=== PATIENT | male | born 1965 | race African-American/Black ===

== ENCOUNTER 2022-09-17 04:38 | Inpatient (IN) | payer MEDICARE, MEDICAID ==
[2022-09-17] MEDS ORDERED: Ondansetron PF 4 MG/2 ML Vial ONE ×2 (05:05→07:18)
[2022-09-17 05:12] LABS: #Eosinphils 0.2 thou/uL (0.0-0.7); #Lymphocytes 1.6 thou/uL (1.20-3.40); #Monocytes 0.3 thou/uL (0.11-0.59); #Neutrophils 8.9 thou/uL (1.40-6.50); %Basophils 0.4 % (0.0-1.0); %Eosinophils 1.5 % (0.0-10.0); %Lymphocytes 14.3 % (21.0-51.0); %Monocytes 2.8 % (0.0-10.0); %Neutrophils 81.1 % (42.0-75.0); Hemoglobin 11.8 g/dL (14.0-18.0); Mean Corpuscular HGB CONC 32.6 g/dL (32.0-36.0); Mean Corpuscular Hemoglobin 32.6 pg (27.0-31.0); Platelet Count 218 10x3/uL (130-400); RBC Distribution Width 13.8 % (11.5-14.5); Red Blood Cell (RBC) Count 3.61 mill/uL (4.70-6.10)
[2022-09-17 05:41] LABS: ALT (SGPT) 13 U/L (8-55); AST (SGOT) 29 U/L (5-34); Albumin 4.1 g/dL (3.5-5.0); Alkaline Phosphatase 92 U/L (40-110); Anion Gap 21 mmol/L (10-20); BUN (Urea Nitrogen) 19 mg/dL (8.4-25.7); Bilirubin, Total 0.7 mg/dL (0.2-1.2); Calc. Creatinine Clearance 0 mL/min (70-130); Calcium 9.2 mg/dL (7.8-10.44); Carbon Dioxide 27 mmol/L (22-29); Chloride 98 mmol/L (98-107); Estimated GFR 9; Globulin 4.1 g/dL (2.4-3.5); Glucose 166 mg/dL (70-105); Lipase 8 U/L (8-78); Potassium 3.9 mmol/L (3.5-5.1); Protein, Total 8.2 g/dL (6.0-8.3); Sodium 142 mmol/L (136-145)
[2022-09-17] MEDS ORDERED: Promethazine HCl 12.5 MG in Sodium Chloride 0.9% 50 ML IVPB SCH ×4 (05:45→23:59)
[2022-09-17 05:54] LABS: CKMB 1.1 ng/mL (0-6.6)
[2022-09-17] MEDS ORDERED: Meclizine HCl 25 MG TAB ONE (06:55)
[2022-09-17] MEDS ORDERED: Diazepam 10 MG/2 ML SYRINGE ONE (07:18)
[2022-09-17] MEDS ORDERED: Acetaminophen 325 MG TAB PO PRN (09:58)
[2022-09-17] MEDS ORDERED: Promethazine HCl 25 MG in Sodium Chloride 0.9% 50 ML IVPB PRN (10:04)
[2022-09-17 10:18] LABS: CKMB 1.6 ng/mL (0-6.6)
[2022-09-17] MEDS ORDERED: Pantoprazole 40 MG VIAL IVP SCH (10:30)
[2022-09-17] MEDS ORDERED: Sodium Chloride 0.9% 1,000 ML IV SCH (10:30)
[2022-09-17] MEDS ORDERED: Pantoprazole 40 MG VIAL ONE (10:47)
[2022-09-17 12:21] LABS: Magnesium 2.1 mg/dL (1.6-2.6)
[2022-09-17] MEDS ORDERED: Prochlorperazine Edisylate 10 MG in Sodium Chloride 0.9% 50 ML IVPB PRN (14:43)
[2022-09-17 15:39] LABS: HBSAg Index 0.27 S/CO (0-0.99); Hep B Core Total Ab Non-Reactive (NonReactive); Hep B Core Total Index 0.09 S/CO (0-0.79); Hep B Surf Ag Non-Reactive S/CO (NonReactive); Hep C IgG Ab Non-Reactive S/CO (NonReactive); Hep C Index 0.14 S/CO (0-0.79)
[2022-09-17] MEDS ORDERED: Metoprolol Tartrate 5 MG/5 ML VIAL IVP SCH (15:45)
[2022-09-17] MEDS: hydrALAZINE 20 MG/ML VIAL SLOW IVP PRN (15:56)
[2022-09-17 16:36] LABS: HBSAB Concentration 25.81 mIU/mL; Hep B Surf AB Reactive (NonReactive)
[2022-09-17] MEDS: hydrALAZINE 20 MG/ML VIAL SLOW IVP SCH ×2 (16:41→20:58)
[2022-09-17 19:17] VITALS: BMI 31.1
[2022-09-17] MEDS: Ondansetron PF 4 MG/2 ML Vial IVP PRN (20:59)
[2022-09-17] MEDS: Pantoprazole 40 MG VIAL IVP SCH (21:00)
[2022-09-17] MEDS: Promethazine HCl 12.5 MG in Sodium Chloride 0.9% 50 ML IVPB SCH (23:51)
[2022-09-18] MEDS: hydrALAZINE 20 MG/ML VIAL SLOW IVP SCH ×4 (04:01→22:40)
[2022-09-18] MEDS: Ondansetron PF 4 MG/2 ML Vial IVP PRN ×3 (04:02→20:18)
[2022-09-18] MEDS: Promethazine HCl 12.5 MG in Sodium Chloride 0.9% 50 ML IVPB SCH ×4 (05:40→22:40)
[2022-09-18] MEDS: Pantoprazole 40 MG VIAL IVP SCH ×2 (08:12→20:18)
[2022-09-18] MEDS ORDERED: Heparin 10,000 UNITS/ 10 ML VIAL ONE (09:24)
[2022-09-18] MEDS ORDERED: diphenhydrAMINE 25 MG in Sodium Chloride 0.9% 50 ML IVPB SCH (09:30)
[2022-09-18 16:34] LABS: #Basophils 0.1 thou/uL (0.0-0.2); #Eosinphils 0.2 thou/uL (0.0-0.7); #Lymphocytes 1.3 thou/uL (1.20-3.40); #Monocytes 0.4 thou/uL (0.11-0.59); #Neutrophils 3.7 thou/uL (1.40-6.50); %Basophils 0.9 % (0.0-1.0); %Eosinophils 3.8 % (0.0-10.0); %Lymphocytes 22.7 % (21.0-51.0); %Monocytes 7.7 % (0.0-10.0); %Neutrophils 64.8 % (42.0-75.0); Mean Corpuscular HGB CONC 32.9 g/dL (32.0-36.0); Mean Corpuscular Hemoglobin 32.7 pg (27.0-31.0); Mean Corpuscular Volume 99.6 fl (78.0-98.0); Mean Platelet Volume 8.2 fL (7.4-10.4); Platelet Count 221 10x3/uL (130-400); RBC Distribution Width 13.4 % (11.5-14.5); Red Blood Cell (RBC) Count 3.35 mill/uL (4.70-6.10); White Blood Cell (WBC) Count 5.7 10x3/uL (4.8-10.8)
[2022-09-18 16:44] LABS: Anion Gap 13 mmol/L (10-20); BUN (Urea Nitrogen) 11 mg/dL (8.4-25.7); Calc. Creatinine Clearance 25 mL/min (70-130); Calcium 8.4 mg/dL (7.8-10.44); Carbon Dioxide 28 mmol/L (22-29); Chloride 101 mmol/L (98-107); Estimated GFR 13; Glucose 75 mg/dL (70-105); Potassium 3.8 mmol/L (3.5-5.1); Sodium 138 mmol/L (136-145)
[2022-09-18] MEDS: hydrALAZINE 20 MG/ML VIAL SLOW IVP PRN (20:17)
[2022-09-19] MEDS: hydrALAZINE 20 MG/ML VIAL SLOW IVP SCH ×4 (04:53→21:16)
[2022-09-19] MEDS: Promethazine HCl 12.5 MG in Sodium Chloride 0.9% 50 ML IVPB SCH ×3 (05:34→18:13)
[2022-09-19] MEDS: Lisinopril 20 MG TAB PO SCH ×2 (09:44→19:56)
[2022-09-19] MEDS: Pantoprazole 40 MG VIAL IVP SCH ×2 (09:45→21:16)
[2022-09-19] MEDS ORDERED: Darunavir/Cobicistat [Prezcobix 800 Mg-150 Mg Tablet] PO SCH (10:30)
[2022-09-19] MEDS ORDERED: Lorazepam 2 MG/ML VIAL SLOW IVP SCH (15:00)
[2022-09-19] MEDS ORDERED: Melatonin 3 MG TAB PO PRN (20:04)
[2022-09-20] MEDS: Promethazine HCl 12.5 MG in Sodium Chloride 0.9% 50 ML IVPB SCH ×3 (00:16→23:25)
[2022-09-20] MEDS: hydrALAZINE 20 MG/ML VIAL SLOW IVP SCH ×4 (04:47→17:14)
[2022-09-20] MEDS: Lisinopril 20 MG TAB PO SCH ×2 (08:48→20:27)
[2022-09-20] MEDS: Pantoprazole 40 MG VIAL IVP SCH (08:48)
[2022-09-20] MEDS: Darunavir/Cobicistat [Prezcobix 800 Mg-150 Mg Tablet] PO SCH (08:50)
[2022-09-20] MEDS: Meclizine HCl 25 MG TAB PO PRN ×2 (11:09→21:31)
[2022-09-20] MEDS: hydrALAZINE 20 MG/ML VIAL SLOW IVP PRN ×2 (16:48→23:46)
[2022-09-20] MEDS: hydrALAZINE 25 MG TAB PO SCH (17:33)
[2022-09-21] MEDS: Promethazine HCl 12.5 MG in Sodium Chloride 0.9% 50 ML IVPB SCH ×2 (05:26→13:05)
[2022-09-21] MEDS: Lisinopril 20 MG TAB PO SCH (08:02)
[2022-09-21] MEDS: hydrALAZINE 25 MG TAB PO SCH ×2 (08:02→15:12)
[2022-09-21] MEDS: Darunavir/Cobicistat [Prezcobix 800 Mg-150 Mg Tablet] PO SCH (08:03)
[2022-09-21] MEDS ORDERED: Heparin 10,000 UNITS/ 10 ML VIAL ONE (08:38)
[2022-09-21 08:57] VITALS: TEMP 98.2
[2022-09-21] MEDS ORDERED: NIFEdipine XL 30 MG TAB PO SCH (09:00)
[2022-09-21] MEDS ORDERED: Diphenoxylate HCl/Atropine Tablet PO PRN (09:19)
[2022-09-21 15:12] VITALS: BP 185/95
== END 2022-09-21 16:08 | disposition home or self-care (01) | DRG 391 ==
LOC: ERS 04:38 → ERHOLD 10:05 → T4-B 14:24 → OBSVTOIN 09-18 20:28
PROVIDERS: ADMIT Internal Medicine; ATTEND Internal Medicine
PROC: 5A1D70Z Performance of Urinary Filtration, Intermittent, Less than 6 Hours Per Day (ICD-10-PCS; principal; 2022-09-17)
DX: A08.4 Viral intestinal infection, unspecified (principal); N18.6 End stage renal disease; I12.0 Hypertensive chronic kidney disease with stage 5 chronic kidney disease or end stage renal disease; A05.9 Bacterial foodborne intoxication, unspecified; E78.5 Hyperlipidemia, unspecified; D63.1 Anemia in chronic kidney disease; Z99.2 Dependence on renal dialysis; Z89.412 Acquired absence of left great toe; Z89.411 Acquired absence of right great toe; Z79.899 Other long term (current) drug therapy
CPT/HCPCS: 36415; 74176; 80048; 80053; 82553; 83690; 83735; 84484; 85025; 86704; 93005; 96365; 96375; 96376; C9113; J0360; J0780; J1200; J1644; J2060; J2405; J2550; J3360; J7050

== ENCOUNTER 2022-11-01 16:50 | Inpatient (IN) | payer MEDICARE, MEDICAID ==
[2022-11-01 17:49] LABS: #Basophils 0.1 thou/uL (0.0-0.2); #Eosinphils 0.5 thou/uL (0.0-0.7); #Monocytes 0.5 thou/uL (0.11-0.59); #Neutrophils 5.7 thou/uL (1.40-6.50); %Basophils 0.9 % (0.0-1.0); %Eosinophils 6.7 % (0.0-10.0); %Lymphocytes 14.2 % (21.0-51.0); %Monocytes 6.5 % (0.0-10.0); %Neutrophils 71.6 % (42.0-75.0); Hemoglobin 9.9 g/dL (14.0-18.0); Mean Corpuscular HGB CONC 31.8 g/dL (32.0-36.0); Mean Corpuscular Hemoglobin 30.1 pg (27.0-31.0); Mean Corpuscular Volume 94.5 fl (78.0-98.0); Mean Platelet Volume 10.5 fL (7.4-10.4); Platelet Count 220 10x3/uL (130-400); RBC Distribution Width 15.2 % (11.5-14.5); Red Blood Cell (RBC) Count 3.29 mill/uL (4.70-6.10)
[2022-11-01 18:10] LABS: ALT (SGPT) 11 U/L (8-55); AST (SGOT) 13 U/L (5-34); Albumin 3.2 g/dL (3.5-5.0); Alkaline Phosphatase 75 U/L (40-110); Anion Gap 13 mmol/L (10-20); BUN (Urea Nitrogen) 34 mg/dL (8.4-25.7); Bilirubin, Total 0.6 mg/dL (0.2-1.2); Calc. Creatinine Clearance 0 mL/min (70-130); Calcium 8.8 mg/dL (7.8-10.44); Carbon Dioxide 30 mmol/L (22-29); Chloride 103 mmol/L (98-107); Estimated GFR 6; Globulin 3.2 g/dL (2.4-3.5); Glucose 100 mg/dL (70-105); Protein, Total 6.4 g/dL (6.0-8.3); Sodium 142 mmol/L (136-145)
[2022-11-01 20:44] LABS: CKMB 1.6 ng/mL (0-6.6)
[2022-11-01] MEDS ORDERED: Aspirin Chewable 81 MG TAB ONE (22:02)
[2022-11-01] MEDS ORDERED: Dicyclomine 20 MG TAB ONE (22:03)
[2022-11-01] MEDS ORDERED: Ondansetron ODT 4 MG TAB PO PRN (22:06)
[2022-11-01] MEDS ORDERED: cloNIDine 0.1 MG TAB PO SCH (22:30)
[2022-11-02 05:05] LABS: #Basophils 0.1 thou/uL (0.0-0.2); #Eosinphils 0.6 thou/uL (0.0-0.7); #Monocytes 0.4 thou/uL (0.11-0.59); #Neutrophils 3.6 thou/uL (1.40-6.50); %Eosinophils 10.5 % (0.0-10.0); %Lymphocytes 19.7 % (21.0-51.0); %Monocytes 7.1 % (0.0-10.0); %Neutrophils 61.4 % (42.0-75.0); Mean Corpuscular HGB CONC 31.1 g/dL (32.0-36.0); Mean Corpuscular Volume 96.3 fl (78.0-98.0); Mean Platelet Volume 10.5 fL (7.4-10.4); Platelet Count 199 10x3/uL (130-400); RBC Distribution Width 15.2 % (11.5-14.5); White Blood Cell (WBC) Count 5.9 10x3/uL (4.8-10.8)
[2022-11-02 05:27] LABS: Anion Gap 12 mmol/L (10-20); BUN (Urea Nitrogen) 41 mg/dL (8.4-25.7); Calc. Creatinine Clearance 12 mL/min (70-130); Calcium 8.3 mg/dL (7.8-10.44); Carbon Dioxide 31 mmol/L (22-29); Chloride 104 mmol/L (98-107); Estimated GFR 6; Glucose 105 mg/dL (70-105); Potassium 3.9 mmol/L (3.5-5.1); Sodium 143 mmol/L (136-145)
[2022-11-02] MEDS ORDERED: Communication Order-Pharmacy FS SCH (08:30)
[2022-11-02] MEDS: Heparin 5,000 UNITS/ML VIAL SC SCH ×3 (08:39→23:28)
[2022-11-02] MEDS: cloNIDine 0.1 MG TAB PO SCH ×2 (08:42→23:27)
[2022-11-02] MEDS: hydrALAZINE 25 MG TAB PO SCH ×3 (08:42→23:26)
[2022-11-02] MEDS: Darunavir/Cobicistat [Prezcobix 800 Mg-150 Mg Tablet PO SCH (08:43)
[2022-11-02] MEDS ORDERED: Lisinopril 20 MG TAB PO SCH (09:00)
[2022-11-02] MEDS ORDERED: NIFEdipine XL 60 MG TAB PO SCH (09:00)
[2022-11-02] MEDS ORDERED: Heparin 10,000 UNITS/ 10 ML VIAL ONE (10:05)
[2022-11-02] MEDS: Sacubitril 49 MG/Valsartan 51 MG TABLET PO SCH (23:27)
[2022-11-03] MEDS: Melatonin 3 MG TAB PO PRN ×2 (01:00→22:24)
[2022-11-03] MEDS: hydrALAZINE 25 MG TAB PO SCH ×3 (05:46→22:23)
[2022-11-03] MEDS: Sacubitril 49 MG/Valsartan 51 MG TABLET PO SCH ×2 (05:46→22:23)
[2022-11-03] MEDS: cloNIDine 0.1 MG TAB PO SCH (05:47)
[2022-11-03] MEDS: Darunavir/Cobicistat [Prezcobix 800 Mg-150 Mg Tablet PO SCH (05:48)
[2022-11-03] MEDS: Heparin 5,000 UNITS/ML VIAL SC SCH ×3 (05:49→22:22)
[2022-11-03] MEDS ORDERED: Midazolam HCl 2 mg/2 ml Vial ONE (07:24)
[2022-11-03] MEDS ORDERED: Lidocaine 1% (PF) 30 ML VIAL ONE (07:24)
[2022-11-03 07:51] LABS: Troponin I 0.304 ng/mL (< 0.028)
[2022-11-03] MEDS ORDERED: Iopamidol 370 76% 100 ML VIAL ONE (08:52)
[2022-11-03] MEDS ORDERED: Sacubitril 49 MG/Valsartan 51 MG TABLET PO SCH (09:00)
[2022-11-03] MEDS: Carvedilol 6.25 MG TAB PO SCH ×2 (10:03→16:10)
[2022-11-03] MEDS ORDERED: Sodium Chloride 0.9% 200 ML IV PRN (13:51)
[2022-11-03] MEDS ORDERED: Acetaminophen/Codeine 30-300mg Tablet PO PRN ×2 (13:51)
[2022-11-03] MEDS ORDERED: Nitroglycerin 0.4 MG TAB (25 Tab Bottle) SL PRN (13:51)
[2022-11-04] MEDS ORDERED: Heparin 10,000 UNITS/ 10 ML VIAL ONE (08:39)
[2022-11-04] MEDS: Sacubitril 49 MG/Valsartan 51 MG TABLET PO SCH ×2 (09:00→20:38)
[2022-11-04] MEDS: hydrALAZINE 25 MG TAB PO SCH ×3 (09:00→20:37)
[2022-11-04] MEDS: Heparin 5,000 UNITS/ML VIAL SC SCH ×3 (09:00→20:38)
[2022-11-04] MEDS: Aspirin 325 mg Enteric Coated Tablet PO SCH (12:58)
[2022-11-04] MEDS: Carvedilol 6.25 MG TAB PO SCH ×2 (12:58→17:19)
[2022-11-04] MEDS: Darunavir/Cobicistat [Prezcobix 800 Mg-150 Mg Tablet PO SCH (13:03)
[2022-11-04] MEDS: Atorvastatin Calcium 40 MG TAB PO SCH (20:37)
[2022-11-04] MEDS: Melatonin 3 MG TAB PO PRN (20:38)
[2022-11-05] MEDS ORDERED: Melatonin 3 MG TAB PO SCH (02:15)
[2022-11-05 09:03] VITALS: BMI 27.6
[2022-11-05] MEDS: hydrALAZINE 25 MG TAB PO SCH ×3 (10:25→20:39)
[2022-11-05] MEDS: Heparin 5,000 UNITS/ML VIAL SC SCH ×3 (10:25→20:38)
[2022-11-05] MEDS: Carvedilol 6.25 MG TAB PO SCH ×2 (10:26→15:46)
[2022-11-05] MEDS: Aspirin 325 mg Enteric Coated Tablet PO SCH (10:26)
[2022-11-05] MEDS: Sacubitril 49 MG/Valsartan 51 MG TABLET PO SCH ×2 (10:26→20:39)
[2022-11-05] MEDS: Darunavir/Cobicistat [Prezcobix 800 Mg-150 Mg Tablet PO SCH (10:27)
[2022-11-05] MEDS: Melatonin 3 MG TAB PO PRN (20:39)
[2022-11-05] MEDS: Atorvastatin Calcium 40 MG TAB PO SCH (20:39)
[2022-11-06] MEDS ORDERED: Carvedilol 6.25 MG TAB PO SCH (07:24)
[2022-11-06] MEDS: Heparin 5,000 UNITS/ML VIAL SC SCH ×3 (11:41→20:11)
[2022-11-06] MEDS: hydrALAZINE 25 MG TAB PO SCH ×3 (11:41→20:10)
[2022-11-06] MEDS: Isosorbide Dinitrate 20 MG TAB PO SCH ×3 (11:41→20:10)
[2022-11-06] MEDS: Carvedilol 25 MG TAB PO SCH ×2 (13:14→15:56)
[2022-11-06] MEDS: Sacubitril 49 MG/Valsartan 51 MG TABLET PO SCH ×2 (13:50→20:11)
[2022-11-06] MEDS: Aspirin 325 mg Enteric Coated Tablet PO SCH (13:50)
[2022-11-06] MEDS: Darunavir/Cobicistat [Prezcobix 800 Mg-150 Mg Tablet PO SCH (13:50)
[2022-11-06] MEDS ORDERED: Heparin 10,000 UNITS/ 10 ML VIAL ONE (13:55)
[2022-11-06] MEDS: Melatonin 3 MG TAB PO PRN (20:11)
[2022-11-06] MEDS: Atorvastatin Calcium 40 MG TAB PO SCH (20:11)
[2022-11-07] MEDS: Aspirin 325 mg Enteric Coated Tablet PO SCH (07:28)
[2022-11-07] MEDS: Sacubitril 49 MG/Valsartan 51 MG TABLET PO SCH (07:28)
[2022-11-07] MEDS: Isosorbide Dinitrate 20 MG TAB PO SCH (07:28)
[2022-11-07] MEDS: hydrALAZINE 25 MG TAB PO SCH (07:28)
[2022-11-07] MEDS: Carvedilol 25 MG TAB PO SCH (07:28)
[2022-11-07] MEDS: Darunavir/Cobicistat [Prezcobix 800 Mg-150 Mg Tablet PO SCH (07:29)
[2022-11-07] MEDS: Heparin 5,000 UNITS/ML VIAL SC SCH (07:29)
[2022-11-07 08:43] VITALS: BP 144/67; TEMP 98.8
== END 2022-11-07 09:00 | disposition short-term general hospital (02) | DRG 280 ==
LOC: SUATTDRO 16:50 → ERS 16:50 → 2SW 22:11
PROVIDERS: ADMIT Family Medicine; ATTEND Internal Medicine
PROC: 4A023N7 Measurement of Cardiac Sampling and Pressure, Left Heart, Percutaneous Approach (ICD-10-PCS; principal; 2022-11-03)
PROC: B2111ZZ Fluoroscopy of Multiple Coronary Arteries using Low Osmolar Contrast (ICD-10-PCS; 2022-11-03)
DX: I21.4 Non-ST elevation (NSTEMI) myocardial infarction (principal); I50.21 Acute systolic (congestive) heart failure; N18.6 End stage renal disease; I13.2 Hypertensive heart and chronic kidney disease with heart failure and with stage 5 chronic kidney disease, or end stage renal disease; I31.39 Other pericardial effusion (noninflammatory); Z21 Asymptomatic human immunodeficiency virus [HIV] infection status; I25.10 Atherosclerotic heart disease of native coronary artery without angina pectoris; I25.5 Ischemic cardiomyopathy; Z99.2 Dependence on renal dialysis; Z79.899 Other long term (current) drug therapy; Z79.82 Long term (current) use of aspirin; Z86.73 Personal history of transient ischemic attack (TIA), and cerebral infarction without residual deficits; Z89.429 Acquired absence of other toe(s), unspecified side; D64.9 Anemia, unspecified; E78.5 Hyperlipidemia, unspecified
CPT/HCPCS: 36415; 36416; 70450; 71045; 80048; 80053; 82553; 83880; 84443; 84484; 85025; 90935; 93005; 93306; 93458; 93798; 96372; 99152; C1769; G0257; J1644; J1650; J2001; J2250; Q9967

== ENCOUNTER 2023-02-28 14:52 | Emergency (ER) | payer MEDICAID, MEDICARE ==
[2023-02-28 15:33] LABS: #Basophils 0.1 thou/uL (0.0-0.2); #Eosinphils 0.4 thou/uL (0.0-0.7); #Monocytes 0.5 thou/uL (0.11-0.59); #Neutrophils 4.3 thou/uL (1.40-6.50); %Basophils 0.9 % (0.0-1.0); %Eosinophils 6.6 % (0.0-10.0); %Lymphocytes 15.1 % (21.0-51.0); %Monocytes 8.5 % (0.0-10.0); %Neutrophils 68.4 % (42.0-75.0); Hematocrit 32.8 % (42.0-52.0); Hemoglobin 10.1 g/dL (14.0-18.0); Mean Corpuscular HGB CONC 30.8 g/dL (32.0-36.0); Mean Corpuscular Volume 94.3 fl (78.0-98.0); Mean Platelet Volume 9.6 fL (7.4-10.4); Platelet Count 246 10x3/uL (130-400); RBC Distribution Width 18.6 % (11.5-14.5); Red Blood Cell (RBC) Count 3.48 mill/uL (4.70-6.10); White Blood Cell (WBC) Count 6.3 10x3/uL (4.8-10.8)
[2023-02-28 15:55] LABS: Magnesium 2.5 mg/dL (1.6-2.6)
[2023-02-28 16:01] LABS: ALT (SGPT) 7 U/L (8-55); AST (SGOT) 13 U/L (5-34); Albumin 3.7 g/dL (3.5-5.0); Alkaline Phosphatase 89 U/L (40-110); Anion Gap 16 mmol/L (10-20); BUN (Urea Nitrogen) 40 mg/dL (8.4-25.7); Bilirubin, Total 0.3 mg/dL (0.2-1.2); Calc. Creatinine Clearance 0 mL/min (70-130); Carbon Dioxide 28 mmol/L (22-29); Chloride 99 mmol/L (98-107); Estimated GFR 7; Globulin 3.7 g/dL (2.4-3.5); Glucose 165 mg/dL (70-105); Potassium 3.7 mmol/L (3.5-5.1); Protein, Total 7.4 g/dL (6.0-8.3); Sodium 139 mmol/L (136-145)
[2023-02-28 16:06] LABS: Troponin I 0.105 ng/mL (< 0.028)
[2023-02-28 17:04] LABS: Acetaminophen Less than 10 mcg/mL (10.0-30.0); Alcohol Less than 10.0 mg/dL (Less than 10); Lipase 17 U/L (8-78); Salicylate Less than 8.0 mg/dL (15.0-30.0)
== END 2023-02-28 18:32 | disposition home or self-care (01) ==
LOC: ERS 14:52
DX: R53.1 Weakness (principal); I12.0 Hypertensive chronic kidney disease with stage 5 chronic kidney disease or end stage renal disease; N18.6 End stage renal disease; B20 Human immunodeficiency virus [HIV] disease; E78.00 Pure hypercholesterolemia, unspecified; I25.10 Atherosclerotic heart disease of native coronary artery without angina pectoris; Z99.2 Dependence on renal dialysis
CPT/HCPCS: 36415; 70450; 71045; 80053; 80307; 82140; 82550; 83690; 83735; 83880; 84443; 84484; 85025; 86140; 93005; 96360; 96361

== ENCOUNTER 2023-09-27 09:30 | Inpatient (IN) | payer MEDICARE, OTHER ==
[2023-09-27 10:01] LABS: #Basophils Less than 0.03 10x3/uL (0.0-0.2); %Basophils 0.3 % (0.0-1.0); %Eosinophils 3.9 % (0.0-10.0); %Monocytes 10.2 % (0.0-10.0); %Neutrophils 64.3 % (42.0-75.0); Hematocrit 35.2 % (42.0-52.0); Hemoglobin 11.3 g/dL (14.0-18.0); Mean Corpuscular HGB CONC 32.1 g/dL (32.0-36.0); Mean Corpuscular Volume 96.7 fL (78.0-98.0); Platelet Count 181 10x3/uL (130-400); RBC Distribution Width 14.5 % (11.5-14.5); Red Blood Cell (RBC) Count 3.64 mill/uL (4.70-6.10)
[2023-09-27 10:15] LABS: Globulin 6.5 g/dL (2.4-3.5); Prothrombin Time 13.4 sec (12.0-14.7)
[2023-09-27 10:16] LABS: PTT 28.2 sec (22.9-36.1)
[2023-09-27 10:19] LABS: ALT (SGPT) 9 U/L (8-55); AST (SGOT) 19 U/L (5-34); Albumin 2.8 g/dL (3.5-5.0); Alkaline Phosphatase 76 U/L (40-110); Anion Gap 25 mmol/L (10-20); BUN (Urea Nitrogen) 44 mg/dL (8.4-25.7); Bilirubin, Total 0.3 mg/dL (0.2-1.2); Calc. Creatinine Clearance 0 mL/min (70-130); Calcium 8.7 mg/dL (7.8-10.44); Carbon Dioxide 20 mmol/L (22-29); Chloride 96 mmol/L (98-107); Estimated GFR 5; Glucose 99 mg/dL (70-105); Protein, Total 9.3 g/dL (6.0-8.3); Sodium 137 mmol/L (136-145)
[2023-09-27 10:20] LABS: Acetaminophen Less than 10 mcg/mL (10.0-30.0); Alcohol Less than 10.0 mg/dL (Less than 10); Magnesium 2.4 mg/dL (1.6-2.6); Salicylate Less than 8.0 mg/dL (15.0-30.0)
[2023-09-27 10:25] LABS: Troponin I 0.091 ng/mL (< 0.028)
[2023-09-27 10:35] LABS: Analyzer IN Cardio ER; Base Excess 0.5 mEq/L (-2.0 to +3.0); Calcium, Ionized (venous) 0.97 mmol/L (1.16-1.32); Chloride (VBG) 95 mmol/L (98-106); Hematocrit-VBG 31 % (42.0-52.0); Hemoglobin (Hb) 10.7 g/dL (13.1-17.2); Potassium (VBG) 3.44 mmol/L (3.70-5.30); Sodium 135 mmol/L (133-146); pH (venous) 7.462 (7.32-7.43)
[2023-09-27] MEDS ORDERED: Sodium Chloride 0.9% 100 ML ONE (10:40)
[2023-09-27] MEDS ORDERED: Cefepime 2 GM VIAL ONE (10:40)
[2023-09-27] MEDS ORDERED: hydrALAZINE 20 MG/ML VIAL ONE (11:52)
[2023-09-27] MEDS ORDERED: Vancomycin (BATCH) 2 GM/500 ML BAG ONE (11:53)
[2023-09-27 12:04] LABS: Amphetamine Not Detected (NotDetected); Barbiturates Screen Not Detected (NotDetected); Benzodiazepine Screen Not Detected (NotDetected); Cocaine Metabolite Screen Detected (NotDetected); Methadone Not Detected (NotDetected); Methamphetamine Not Detected (NotDetected); Opiate Screen Not Detected (NotDetected); Oxycodone Screen Not Detected (NotDetected); Phencyclidine (PCP) Not Detected (NotDetected); THC/Cannabinoid Screen Not Detected (NotDetected); Tricyclic Screen Not Detected (NotDetected)
[2023-09-27 12:09] LABS: Clarity Very Cloudy (Clear); Glucose, Urine (Dipstick) Negative (Negative); Leukocyte Large (Negative); Nitrite Negative (Negative); Protein, Urine (Dipstick) > or equal to 300 mg/dL (Neg-Trace); pH, Urine 7.5 (5.0-9.0)
[2023-09-27 12:10] LABS: Bilirubin Negative (Negative); Ketone, Urine 15 mg/dL (Negative); Urobilinogen Normal mg/dL (Less than 2)
[2023-09-27 12:12] LABS: Bacteria/HPF 4+ HPF (None Seen); Blood, Urine Large (Negative); CAUTI Indications for Culture Alt mental st,lethar; RBC/HPF 21-50 HPF (0-3); Squamous Epithelial None Seen HPF (0-3); WBC/HPF Greater Than 50 HPF (0-3)
[2023-09-27 12:14] LABS: Urine Culture Reflex Yes Yes
[2023-09-27 13:20] LABS: Lactic Acid 0.7 mmol/L (0.5-2.2)
[2023-09-27] MEDS ORDERED: Iopamidol-370 76% 500 ML MDV (1 ML CHARGE) ONE (13:26)
[2023-09-27] MEDS ORDERED: LORazepam 2 MG/ML SYR.(CARPUJECT) ONE (14:26)
[2023-09-27] MEDS ORDERED: levETIRAcetam 500 MG (5 mL) VIAL ONE (14:30)
[2023-09-27] MEDS ORDERED: Acetaminophen 325 MG TAB PO PRN (14:37)
[2023-09-27] MEDS ORDERED: Lorazepam 2 MG/ML VIAL SLOW IVP PRN (14:37)
[2023-09-27] MEDS: hydrALAZINE 25 MG TAB PO SCH (16:59)
[2023-09-27] MEDS: Heparin 5,000 UNITS/ML VIAL SC SCH (17:01)
[2023-09-28] MEDS: Sulfameth/Trimethoprim DS 800-160mg TAB PO SCH
[2023-09-28] MEDS: Sulfameth/Trimethoprim SS 400-80MG TAB PO SCH (00:46)
[2023-09-28 08:20] LABS: Anion Gap 16 mmol/L (10-20); BUN (Urea Nitrogen) 20 mg/dL (8.4-25.7); Calc. Creatinine Clearance 15 mL/min (70-130); Calcium 8.4 mg/dL (7.8-10.44); Carbon Dioxide 25 mmol/L (22-29); Chloride 98 mmol/L (98-107); Estimated GFR 8; Glucose 59 mg/dL (70-105); Potassium 3.4 mmol/L (3.5-5.1); Sodium 136 mmol/L (136-145)
[2023-09-28] MEDS: NIFEdipine XL 60 MG ER.TAB PO SCH (08:42)
[2023-09-28] MEDS: Losartan 25 MG TAB PO SCH (08:42)
[2023-09-28 09:12] LABS: #Basophils 0.03 10x3/uL (0.0-0.2); %Basophils 0.5 % (0.0-1.0); %Eosinophils 4.2 % (0.0-10.0); %Lymphocytes 23.8 % (21.0-51.0); %Monocytes 10.2 % (0.0-10.0); Hematocrit 31.8 % (42.0-52.0); Mean Corpuscular HGB CONC 31.4 g/dL (32.0-36.0); Mean Corpuscular Hemoglobin 30.1 pg (27.0-31.0); Mean Corpuscular Volume 95.8 fL (78.0-98.0); Platelet Count 199 10x3/uL (130-400); RBC Distribution Width 14.5 % (11.5-14.5); Red Blood Cell (RBC) Count 3.32 mill/uL (4.70-6.10)
[2023-09-28] MEDS ORDERED: Sodium Bicarbonate 2.5 MEQ/5 ML SDV ONE (12:58)
[2023-09-28] MEDS ORDERED: Lidocaine 1% PF 5 ML VIAL ONE (12:58)
[2023-09-28] MEDS: levETIRAcetam 500 MG (5 mL) VIAL SLOW IVP SCH (16:09)
[2023-09-28] MEDS ORDERED: Vancomycin Diaylsis Sliding Scale (Wt 71-99) FS SCH (20:00)
[2023-09-28] MEDS: cefTRIAXone\\ROCEPHIN 1 GM in Sodium Chloride 0.9% 100 ML IVPB SCH (20:31)
[2023-09-28] MEDS ORDERED: Vancomycin 1 GM in Premix 1 BAG IVPB SCH (21:00)
[2023-09-29] MEDS: Labetalol HCl 100 MG/20 ML VIAL SLOW IVP SCH (03:11)
[2023-09-29 07:04] LABS: #Basophils 0.04 10x3/uL (0.0-0.2); %Basophils 0.6 % (0.0-1.0); %Eosinophils 3.8 % (0.0-10.0); %Lymphocytes 29.7 % (21.0-51.0); %Monocytes 9.6 % (0.0-10.0); Hematocrit 31.8 % (42.0-52.0); Hemoglobin 10.3 g/dL (14.0-18.0); Mean Corpuscular HGB CONC 32.4 g/dL (32.0-36.0); Mean Corpuscular Hemoglobin 31.4 pg (27.0-31.0); Mean Platelet Volume 9.5 fL (7.4-10.4); Platelet Count 186 10x3/uL (130-400); RBC Distribution Width 14.6 % (11.5-14.5); Red Blood Cell (RBC) Count 3.28 mill/uL (4.70-6.10)
[2023-09-29 07:37] LABS: Vancomycin, Trough 16.1 ug/mL
[2023-09-29 07:38] LABS: Anion Gap 14 mmol/L (10-20); BUN (Urea Nitrogen) 33 mg/dL (8.4-25.7); Calc. Creatinine Clearance 10 mL/min (70-130); Calcium 8.2 mg/dL (7.8-10.44); Carbon Dioxide 25 mmol/L (22-29); Chloride 100 mmol/L (98-107); Estimated GFR 6; Glucose 79 mg/dL (70-105); Potassium 3.4 mmol/L (3.5-5.1); Sodium 136 mmol/L (136-145)
[2023-09-29] MEDS ORDERED: Sulfameth/Trimethoprim DS 800-160mg TAB PO SCH (09:00)
[2023-09-29] MEDS ORDERED: Heparin 10,000 UNITS/ 10 ML VIAL ONE (13:02)
[2023-09-29] MEDS: Sulfameth/Trimethoprim SS 400-80MG TAB PO SCH (14:02)
[2023-09-29] MEDS ORDERED: Vancomycin HCl 750 MG in Sodium Chloride 0.9% 250 ML 250 ML IVPB SCH (17:00)
[2023-09-30 06:22] VITALS: BMI 26.7
[2023-09-30 07:41] LABS: #Basophils Less than 0.03 10x3/uL (0.0-0.2); %Basophils 0.3 % (0.0-1.0); %Eosinophils 4.1 % (0.0-10.0); %Lymphocytes 28.8 % (21.0-51.0); %Monocytes 9.8 % (0.0-10.0); %Neutrophils 56.8 % (42.0-75.0); Hematocrit 32.4 % (42.0-52.0); Hemoglobin 10.2 g/dL (14.0-18.0); Mean Corpuscular HGB CONC 31.5 g/dL (32.0-36.0); Mean Corpuscular Hemoglobin 30.4 pg (27.0-31.0); Mean Corpuscular Volume 96.7 fL (78.0-98.0); Mean Platelet Volume 9.8 fL (7.4-10.4); Platelet Count 202 10x3/uL (130-400); RBC Distribution Width 14.5 % (11.5-14.5); Red Blood Cell (RBC) Count 3.35 mill/uL (4.70-6.10)
[2023-09-30 08:10] LABS: Anion Gap 15 mmol/L (10-20); BUN (Urea Nitrogen) 22 mg/dL (8.4-25.7); Calc. Creatinine Clearance 15 mL/min (70-130); Calcium 8.2 mg/dL (7.8-10.44); Carbon Dioxide 32 mmol/L (22-29); Chloride 96 mmol/L (98-107); Estimated GFR 9; Glucose 85 mg/dL (70-105); Potassium 4.1 mmol/L (3.5-5.1); Sodium 139 mmol/L (136-145)
[2023-09-30] MEDS ORDERED: Sodium Bicarbonate 2.5 MEQ/5 ML SDV ONE ×2 (12:46→13:16)
[2023-09-30 14:30] VITALS: BP 154/83
[2023-09-30 14:41] LABS: CSF Source CSF; Clarity Clear (Clear); Tube # 4
[2023-09-30 14:49] LABS: CSF, Protein 64.8 mg/dL (15-40)
[2023-10-01] MEDS: cefTRIAXone\\ROCEPHIN 2 GM in Sodium Chloride 0.9% 100 ML IVPB SCH (00:49)
[2023-10-01 04:15] LABS: #Basophils 0.05 10x3/uL (0.0-0.2); %Basophils 0.8 % (0.0-1.0); %Eosinophils 4.1 % (0.0-10.0); %Lymphocytes 27.2 % (21.0-51.0); %Monocytes 8.6 % (0.0-10.0); %Neutrophils 58.8 % (42.0-75.0); Hematocrit 31.2 % (42.0-52.0); Mean Corpuscular HGB CONC 32.1 g/dL (32.0-36.0); Mean Corpuscular Hemoglobin 30.5 pg (27.0-31.0); Mean Corpuscular Volume 95.1 fL (78.0-98.0); Mean Platelet Volume 9.8 fL (7.4-10.4); Platelet Count 213 10x3/uL (130-400); RBC Distribution Width 14.6 % (11.5-14.5); Red Blood Cell (RBC) Count 3.28 mill/uL (4.70-6.10)
[2023-10-01 04:49] LABS: Anion Gap 16 mmol/L (10-20); BUN (Urea Nitrogen) 33 mg/dL (8.4-25.7); Calc. Creatinine Clearance 12 mL/min (70-130); Calcium 8.4 mg/dL (7.8-10.44); Carbon Dioxide 29 mmol/L (22-29); Chloride 97 mmol/L (98-107); Estimated GFR 7; Glucose 76 mg/dL (70-105); Sodium 138 mmol/L (136-145)
[2023-10-01 11:17] LABS: Fungitell Beta (1,3) D-Glucan Positive (.)
[2023-10-01 12:13] VITALS: TEMP 97.8
[2023-10-03 01:12] LABS: HSV 1 - DNA, CSF Negative (Negative); HSV 2 - DNA, CSF Negative (Negative)
[2023-10-04] MEDS ORDERED: Sulfameth/Trimethoprim SS 400-80MG TAB PO SCH (17:00)
== END 2023-10-01 17:11 | disposition home or self-care (01) | DRG 100 ==
LOC: ERS 09:30 → IMCU/EMU 16:06
PROVIDERS: ADMIT Family Medicine; ATTEND Internal Medicine
PROC: 4A00X4Z Measurement of Central Nervous Electrical Activity, External Approach (ICD-10-PCS; principal; 2023-09-28)
PROC: 009U3ZX Drainage of Spinal Canal, Percutaneous Approach, Diagnostic (ICD-10-PCS; 2023-09-30)
PROC: B01B1ZZ Fluoroscopy of Spinal Cord using Low Osmolar Contrast (ICD-10-PCS; 2023-09-30)
DX: R56.9 Unspecified convulsions (principal); N18.6 End stage renal disease; B20 Human immunodeficiency virus [HIV] disease; E87.20 Acidosis, unspecified; I12.0 Hypertensive chronic kidney disease with stage 5 chronic kidney disease or end stage renal disease; D63.1 Anemia in chronic kidney disease; I25.10 Atherosclerotic heart disease of native coronary artery without angina pectoris; E88.09 Other disorders of plasma-protein metabolism, not elsewhere classified; E87.6 Hypokalemia; R94.31 Abnormal electrocardiogram [ECG] [EKG]; Z89.412 Acquired absence of left great toe; Z99.2 Dependence on renal dialysis; Z95.1 Presence of aortocoronary bypass graft; Z89.411 Acquired absence of right great toe; Z88.2 Allergy status to sulfonamides; Z79.899 Other long term (current) drug therapy
CPT/HCPCS: 36415; 51701; 62270; 70450; 70496; 70498; 70551; 71045; 72100; 80048; 80053; 80202; 80306; 80307; 81001; 82805; 82945; 83605; 83735; 84157; 84443; 84484; 85025; 85610; 85730; 86141; 86592; 86635; 86788; 86789; 87040; 87070; 87077; 87086; 87149; 87186; 87205; 87449; 87529; 87798; 87899; 89051; 93005; 94760; 95700; 95712; 95819; 96361; 96365; 96374; 96375; J0360; J0692; J0696; J1644; J1953; J2060; J3370; J3490; Q9967

== ENCOUNTER 2024-05-22 14:56 | Emergency (ER) | payer OTHER, MEDICARE ==
[2024-05-22] MEDS ORDERED: Amoxicillin/Potassium Clav 875 MG TAB ONE (16:19)
[2024-05-22] MEDS ORDERED: Acetaminophen 500 MG TAB ONE (16:19)
== END 2024-05-22 16:32 | disposition home or self-care (01) ==
LOC: ERS 14:56
DX: Z53.21 Procedure and treatment not carried out due to patient leaving prior to being seen by health care provider (principal)
CPT/HCPCS: 87081; 87428; 87430; 99283

== ENCOUNTER 2025-05-16 18:12 | Emergency (ER) | payer OTHER ==
[~2025-05-16 18:12] MED LIST: Iopamidol-370 76% 500 ML MDV (1 ML CHARGE) ONE
[2025-05-16] MEDS ORDERED: Nitroglycerin 2% Ointment 1 INCH/1 GM Packet ONE (18:28)
[2025-05-16 19:02] LABS: #Basophils Less than 0.03 10x3/uL (0.0-0.2); #Eosinophils 0.28 10x3/uL (0.0-0.7); #Monocytes 0.66 10x3/uL (0.11-0.59); #Neutrophils 6.48 10x3/uL (1.40-6.50); %Basophils 0.2 % (0.0-1.0); %Eosinophils 3.2 % (0.0-10.0); %Lymphocytes 13.8 % (21.0-51.0); %Monocytes 7.6 % (0.0-10.0); %Neutrophils 74.9 % (42.0-75.0); Hematocrit 32.0 % (42.0-52.0); Hemoglobin 9.9 g/dL (14.0-18.0); Mean Corpuscular Hemoglobin 29.5 pg (27.0-31.0); Mean Corpuscular Volume 95.2 fL (78.0-98.0); Platelet Count 169 10x3/uL (130-400); Red Blood Cell (RBC) Count 3.36 mill/uL (4.70-6.10); White Blood Cell (WBC) Count 8.67 10x3/uL (4.8-10.8)
[2025-05-16 19:10] LABS: ALT (SGPT) Less than 7 U/L (Less than 45); AST (SGOT) 15 U/L (11-34); Albumin 2.7 g/dL (3.1-4.5); Alkaline Phosphatase 69 U/L (40-110); Anion Gap 15 mmol/L (10-20); BUN (Urea Nitrogen) 25 mg/dL (8.4-25.7); Bilirubin, Total 0.3 mg/dL (0.3-1.2); Calc. Creatinine Clearance 0 mL/min (70-130); Calcium 8.4 mg/dL (7.8-10.44); Carbon Dioxide 24 mmol/L (22-29); Chloride 101 mmol/L (98-107); Globulin 6.0 g/dL (2.4-3.5); Glucose 71 mg/dL (70-105); Potassium 3.8 mmol/L (3.5-5.1); Sodium 136 mmol/L (136-145)
== END 2025-05-16 21:08 | disposition home or self-care (01) ==
LOC: ERS 18:12
DX: J18.9 Pneumonia, unspecified organism (principal)
CPT/HCPCS: 71045; 71275; 80053; 84484; 85025; 85379; 87428; 93005; Q9967; 36415

== ENCOUNTER 2025-05-17 09:51 | Inpatient (IN) | payer OTHER ==
[2025-05-17 10:22] LABS: #Basophils Less than 0.03 10x3/uL (0.0-0.2); #Eosinophils 0.28 10x3/uL (0.0-0.7); #Monocytes 0.43 10x3/uL (0.11-0.59); #Neutrophils 3.12 10x3/uL (1.40-6.50); %Basophils 0.4 % (0.0-1.0); %Eosinophils 5.9 % (0.0-10.0); %Lymphocytes 18.4 % (21.0-51.0); %Monocytes 9.1 % (0.0-10.0); %Neutrophils 66.0 % (42.0-75.0); Hematocrit 31.4 % (42.0-52.0); Hemoglobin 9.9 g/dL (14.0-18.0); Mean Corpuscular Hemoglobin 29.0 pg (27.0-31.0); Mean Corpuscular Volume 92.1 fL (78.0-98.0); Platelet Count 176 10x3/uL (130-400); Red Blood Cell (RBC) Count 3.41 mill/uL (4.70-6.10); White Blood Cell (WBC) Count 4.73 10x3/uL (4.8-10.8)
[2025-05-17 10:36] LABS: INR-International Normal Ratio 1.2; PTT 30.9 sec (22.9-36.1); Prothrombin Time 15.6 sec (12.0-14.7)
[2025-05-17 10:39] LABS: ALT (SGPT) Less than 7 U/L (Less than 45); AST (SGOT) 21 U/L (11-34); Albumin 2.6 g/dL (3.1-4.5); Alkaline Phosphatase 56 U/L (40-110); Anion Gap 19 mmol/L (10-20); BUN (Urea Nitrogen) 33 mg/dL (8.4-25.7); Bilirubin, Total 0.3 mg/dL (0.3-1.2); Calc. Creatinine Clearance 0 mL/min (70-130); Calcium 8.1 mg/dL (7.8-10.44); Carbon Dioxide 24 mmol/L (22-29); Chloride 98 mmol/L (98-107); Globulin 5.8 g/dL (2.4-3.5); Glucose 81 mg/dL (70-105); Potassium 4.3 mmol/L (3.5-5.1); Sodium 137 mmol/L (136-145)
[2025-05-17] MEDS ORDERED: Ondansetron PF 4 MG/2 ML Vial IVP PRN (12:34)
[2025-05-17] MEDS ORDERED: Senokot S 8.6-50 MG TAB PO PRN (12:34)
[2025-05-17] MEDS ORDERED: Calcium Carbonate 500 MG ChewTAB PO PRN (12:34)
[2025-05-17] MEDS ORDERED: hydrALAZINE 20 MG/ML VIAL SLOW IVP PRN (12:36)
[2025-05-17] MEDS ORDERED: Iopamidol-370 76% 500 ML MDV (1 ML CHARGE) ONE (13:48)
[2025-05-17] MEDS: D5 1/2 NS 500 ML IV SCH (17:21)
[2025-05-17] MEDS: Cholecalciferol 1,000 UNITS (25 MCG) TAB PO SCH (20:16)
[2025-05-17] MEDS: Famotidine 20 MG TAB PO SCH (20:17)
[2025-05-17] MEDS: Folic Acid/Vit B Comp W-C PO SCH (20:17)
[2025-05-17] MEDS: levETIRAcetam 500 MG (5 mL) VIAL SLOW IVP SCH (20:17)
[2025-05-17] MEDS: Heparin 5,000 UNITS/ML VIAL SC SCH (20:18)
[2025-05-17] MEDS: diphenhydrAMINE 25 MG CAP PO PRN (20:21)
[2025-05-17] MEDS: diphenhydrAMINE 25 MG CAP PO SCH (22:56)
[2025-05-18 04:41] LABS: #Basophils 0.04 10x3/uL (0.0-0.2); #Eosinophils 0.33 10x3/uL (0.0-0.7); #Monocytes 0.38 10x3/uL (0.11-0.59); #Neutrophils 2.79 10x3/uL (1.40-6.50); %Basophils 0.9 % (0.0-1.0); %Eosinophils 7.3 % (0.0-10.0); %Lymphocytes 21.6 % (21.0-51.0); %Monocytes 8.4 % (0.0-10.0); %Neutrophils 61.4 % (42.0-75.0); Hematocrit 31.3 % (42.0-52.0); Hemoglobin 9.9 g/dL (14.0-18.0); Mean Corpuscular Hemoglobin 29.4 pg (27.0-31.0); Mean Corpuscular Volume 92.9 fL (78.0-98.0); Platelet Count 167 10x3/uL (130-400); Red Blood Cell (RBC) Count 3.37 mill/uL (4.70-6.10); White Blood Cell (WBC) Count 4.54 10x3/uL (4.8-10.8)
[2025-05-18 05:03] LABS: Anion Gap 16 mmol/L (10-20); BUN (Urea Nitrogen) 43 mg/dL (8.4-25.7); Calc. Creatinine Clearance 0 mL/min (70-130); Calcium 7.9 mg/dL (7.8-10.44); Carbon Dioxide 23 mmol/L (22-29); Cardiac Risk 4.6 (Less than 4.5); Chloride 97 mmol/L (98-107); Cholesterol 105 mg/dl (< 200 Desired); Glucose 76 mg/dL (70-105); HDL Cholesterol 23 mg/dL (>60 Neg Risk); LDL Cholesterol, Calculated 73 mg/dL; Potassium 4.0 mmol/L (3.5-5.1); Sodium 132 mmol/L (136-145); Triglycerides 47 mg/dL (Less than 150)
[2025-05-18 09:45] LABS: Hep B Core Total Index 0.10 S/CO (0-0.79); Hep C Index 0.12 S/CO (0-0.79)
[2025-05-18 09:46] LABS: HBSAB Concentration 12.12 mIU/mL; Hep B Core Total Ab NONREACTIVE (NonReactive); Hep C IgG Ab NONREACTIVE S/CO (NonReactive)
[2025-05-18 10:57] LABS: Hep B Surf Ag NONREACTIVE S/CO (NonReactive)
[2025-05-18] MEDS: Aspirin Chewable 81 MG TAB PO SCH (13:27)
[2025-05-18] MEDS: Azithromycin 250 MG TAB PO SCH (13:27)
[2025-05-18] MEDS: Carvedilol 25 MG TAB PO SCH (13:27)
[2025-05-18] MEDS: Losartan 25 MG TAB PO SCH (13:27)
[2025-05-18] MEDS: NIFEdipine XL 60 MG ER.TAB PO SCH (13:28)
[2025-05-18] MEDS ORDERED: Iopamidol-370 76% 500 ML MDV (1 ML CHARGE) ONE (14:18)
[2025-05-18] MEDS: PNEUMOC 20-VAL CONJ-DIP CRM/PF 0.5 ML SYRINGE IM ONE (16:43)
[2025-05-19 06:20] LABS: #Basophils 0.04 10x3/uL (0.0-0.2); #Eosinophils 0.38 10x3/uL (0.0-0.7); #Monocytes 0.49 10x3/uL (0.11-0.59); #Neutrophils 3.72 10x3/uL (1.40-6.50); %Basophils 0.7 % (0.0-1.0); %Eosinophils 6.7 % (0.0-10.0); %Lymphocytes 17.6 % (21.0-51.0); %Monocytes 8.7 % (0.0-10.0); %Neutrophils 66.1 % (42.0-75.0); Hematocrit 32.8 % (42.0-52.0); Hemoglobin 10.5 g/dL (14.0-18.0); Mean Corpuscular Hemoglobin 29.6 pg (27.0-31.0); Mean Corpuscular Volume 92.4 fL (78.0-98.0); Platelet Count 171 10x3/uL (130-400); Red Blood Cell (RBC) Count 3.55 mill/uL (4.70-6.10); White Blood Cell (WBC) Count 5.63 10x3/uL (4.8-10.8)
[2025-05-19 06:41] LABS: ALT (SGPT) Less than 7 U/L (Less than 45); AST (SGOT) 15 U/L (11-34); Albumin 2.5 g/dL (3.1-4.5); Alkaline Phosphatase 50 U/L (40-110); Anion Gap 16 mmol/L (10-20); BUN (Urea Nitrogen) 27 mg/dL (8.4-25.7); Bilirubin, Total 0.3 mg/dL (0.3-1.2); Calc. Creatinine Clearance 0 mL/min (70-130); Calcium 8.1 mg/dL (7.8-10.44); Carbon Dioxide 27 mmol/L (22-29); Chloride 97 mmol/L (98-107); Globulin 5.7 g/dL (2.4-3.5); Glucose 72 mg/dL (70-105); Potassium 4.0 mmol/L (3.5-5.1); Sodium 136 mmol/L (136-145)
[2025-05-19] MEDS: Azithromycin 250 MG TAB PO SCH (12:13)
[2025-05-19] MEDS ORDERED: Epoetin (ESRD) 10,000 UNITS/ML VIAL SC SCH (13:00)
[2025-05-19] MEDS: EPOETIN ALFA-EPBX (ESRD) 10,000 UNITS/ML VIAL SC SCH (16:27)
[2025-05-20 04:43] LABS: #Basophils 0.04 10x3/uL (0.0-0.2); #Eosinophils 0.37 10x3/uL (0.0-0.7); #Monocytes 0.59 10x3/uL (0.11-0.59); #Neutrophils 5.28 10x3/uL (1.40-6.50); %Basophils 0.6 % (0.0-1.0); %Eosinophils 5.1 % (0.0-10.0); %Lymphocytes 13.2 % (21.0-51.0); %Monocytes 8.1 % (0.0-10.0); %Neutrophils 72.6 % (42.0-75.0); Hematocrit 34.0 % (42.0-52.0); Hemoglobin 10.7 g/dL (14.0-18.0); Mean Corpuscular Hemoglobin 29.4 pg (27.0-31.0); Mean Corpuscular Volume 93.4 fL (78.0-98.0); Platelet Count 189 10x3/uL (130-400); Red Blood Cell (RBC) Count 3.64 mill/uL (4.70-6.10); White Blood Cell (WBC) Count 7.27 10x3/uL (4.8-10.8)
[2025-05-20 05:18] LABS: ALT (SGPT) Less than 7 U/L (Less than 45); AST (SGOT) 17 U/L (11-34); Albumin 2.6 g/dL (3.1-4.5); Alkaline Phosphatase 54 U/L (40-110); Anion Gap 16 mmol/L (10-20); BUN (Urea Nitrogen) 26 mg/dL (8.4-25.7); Bilirubin, Total 0.3 mg/dL (0.3-1.2); Calc. Creatinine Clearance 12 mL/min (70-130); Calcium 8.3 mg/dL (7.8-10.44); Carbon Dioxide 26 mmol/L (22-29); Chloride 97 mmol/L (98-107); Globulin 6.0 g/dL (2.4-3.5); Glucose 77 mg/dL (70-105); Potassium 3.8 mmol/L (3.5-5.1); Sodium 135 mmol/L (136-145)
[2025-05-20] MEDS: Melatonin 3 MG TAB PO PRN (22:05)
[2025-05-21] MEDS: Acetaminophen 325 MG TAB PO PRN (03:21)
[2025-05-21 04:17] LABS: #Basophils 0.03 10x3/uL (0.0-0.2); #Eosinophils 0.35 10x3/uL (0.0-0.7); #Monocytes 0.58 10x3/uL (0.11-0.59); #Neutrophils 3.12 10x3/uL (1.40-6.50); %Basophils 0.6 % (0.0-1.0); %Eosinophils 7.0 % (0.0-10.0); %Lymphocytes 18.5 % (21.0-51.0); %Monocytes 11.6 % (0.0-10.0); %Neutrophils 62.1 % (42.0-75.0); Hematocrit 37.1 % (42.0-52.0); Hemoglobin 11.2 g/dL (14.0-18.0); Mean Corpuscular Hemoglobin 28.6 pg (27.0-31.0); Mean Corpuscular Volume 94.6 fL (78.0-98.0); Platelet Count 181 10x3/uL (130-400); Red Blood Cell (RBC) Count 3.92 mill/uL (4.70-6.10); White Blood Cell (WBC) Count 5.02 10x3/uL (4.8-10.8)
[2025-05-21 04:46] LABS: ALT (SGPT) Less than 7 U/L (Less than 45); AST (SGOT) 19 U/L (11-34); Albumin 2.7 g/dL (3.1-4.5); Alkaline Phosphatase 52 U/L (40-110); Anion Gap 18 mmol/L (10-20); BUN (Urea Nitrogen) 31 mg/dL (8.4-25.7); Bilirubin, Total 0.3 mg/dL (0.3-1.2); Calc. Creatinine Clearance 10 mL/min (70-130); Calcium 8.5 mg/dL (7.8-10.44); Carbon Dioxide 22 mmol/L (22-29); Chloride 98 mmol/L (98-107); Globulin 6.1 g/dL (2.4-3.5); Glucose 70 mg/dL (70-105); Potassium 3.9 mmol/L (3.5-5.1); Sodium 134 mmol/L (136-145)
[2025-05-21] MEDS: Azithromycin 250 MG TAB PO SCH (15:18)
[2025-05-21] MEDS: diphenhydrAMINE 25 MG CAP PO PRN (15:18)
[2025-05-21] MEDS: diphenhydrAMINE 25 MG CAP PO SCH (15:57)
[2025-05-22 04:50] LABS: #Basophils 0.04 10x3/uL (0.0-0.2); #Eosinophils 0.43 10x3/uL (0.0-0.7); #Monocytes 0.51 10x3/uL (0.11-0.59); #Neutrophils 2.25 10x3/uL (1.40-6.50); %Basophils 0.9 % (0.0-1.0); %Eosinophils 10.2 % (0.0-10.0); %Lymphocytes 23.4 % (21.0-51.0); %Monocytes 12.1 % (0.0-10.0); %Neutrophils 53.2 % (42.0-75.0); Hematocrit 38.3 % (42.0-52.0); Hemoglobin 11.7 g/dL (14.0-18.0); Mean Corpuscular Hemoglobin 29.3 pg (27.0-31.0); Mean Corpuscular Volume 96.0 fL (78.0-98.0); Platelet Count 212 10x3/uL (130-400); Red Blood Cell (RBC) Count 3.99 mill/uL (4.70-6.10); White Blood Cell (WBC) Count 4.23 10x3/uL (4.8-10.8)
[2025-05-22 05:14] LABS: ALT (SGPT) Less than 7 U/L (Less than 45); AST (SGOT) 26 U/L (11-34); Albumin 2.9 g/dL (3.1-4.5); Alkaline Phosphatase 54 U/L (40-110); Anion Gap 18 mmol/L (10-20); BUN (Urea Nitrogen) 18 mg/dL (8.4-25.7); Bilirubin, Total 0.3 mg/dL (0.3-1.2); Calc. Creatinine Clearance 13 mL/min (70-130); Calcium 9.0 mg/dL (7.8-10.44); Carbon Dioxide 24 mmol/L (22-29); Chloride 96 mmol/L (98-107); Globulin 6.4 g/dL (2.4-3.5); Glucose 62 mg/dL (70-105); Potassium 4.0 mmol/L (3.5-5.1); Sodium 134 mmol/L (136-145)
[2025-05-22] MEDS ORDERED: diphenhydrAMINE 25 MG CAP PO PRN (09:00)
[2025-05-22 11:43] VITALS: BP 122/63; TEMP 97.7
== END 2025-05-22 15:13 | disposition home health service (06) | DRG 69 ==
LOC: ERS 09:51 → 2SE 12:04 → OBSVTOIN 05-18 13:09
PROVIDERS: ADMIT Internal Medicine; ATTEND Student in an Organized Health Care Education/Training Program
DX: G45.9 Transient cerebral ischemic attack, unspecified (principal); N18.6 End stage renal disease; I50.42 Chronic combined systolic (congestive) and diastolic (congestive) heart failure; I13.2 Hypertensive heart and chronic kidney disease with heart failure and with stage 5 chronic kidney disease, or end stage renal disease; I25.10 Atherosclerotic heart disease of native coronary artery without angina pectoris; I25.2 Old myocardial infarction; E78.5 Hyperlipidemia, unspecified; G40.909 Epilepsy, unspecified, not intractable, without status epilepticus; D63.1 Anemia in chronic kidney disease; Z86.73 Personal history of transient ischemic attack (TIA), and cerebral infarction without residual deficits; Z21 Asymptomatic human immunodeficiency virus [HIV] infection status; Z99.2 Dependence on renal dialysis
CPT/HCPCS: 0042T; 36415; 36416; 70450; 70496; 70498; 70551; 80048; 80053; 80061; 83036; 84484; 85025; 85610; 85730; 86704; 86706; 86803; 87340; 90471; 90677; 90935; 93005; 93306; 94760; G0009; G0257; J1644; J1953; J7042; Q5105; Q9967